=== PATIENT | female | born 1990 | race African-American/Black ===

== ENCOUNTER → 2016-11-29 | Outpatient (CLI) | payer MEDICARE, MEDICAID ==
[~2016-11-29] VITALS: Ht 160 cm; Wt 66.6 kg
[~2016-11-29] MED LIST: CEFU250T87 PO; DOXY100C PO; LEVO500 PO
[2016-11-29 14:06] VITALS: BP 140/95
[2016-11-29 14:10] VITALS: BP 114/59
== END | disposition home or self-care (01) ==
LOC: HBOWC 13:30
PROVIDERS: ATTEND Emergency Medicine
DX: L89.323 Pressure ulcer of left buttock, stage 3 (principal); G82.20 Paraplegia, unspecified; M86.8X7 Other osteomyelitis, ankle and foot
CPT/HCPCS: 72170; 87070; 87077; 87186; 87205; 97597; G0463

== ENCOUNTER → 2016-12-15 | Outpatient (CLI) | payer MEDICARE, MEDICAID ==
[2016-12-15 14:40] VITALS: BP 109/82
== END | disposition home or self-care (01) ==
LOC: HBOWC 14:25
PROVIDERS: ATTEND Emergency Medicine
DX: L89.323 Pressure ulcer of left buttock, stage 3 (principal); G82.20 Paraplegia, unspecified; M86.8X7 Other osteomyelitis, ankle and foot
CPT/HCPCS: 97597

== ENCOUNTER → 2017-01-03 | Outpatient (CLI) | payer MEDICARE, MEDICAID ==
[2017-01-03 14:28] VITALS: BP 140/78
== END | disposition home or self-care (01) ==
LOC: HBOWC 13:40
PROVIDERS: ATTEND Emergency Medicine Undersea and Hyperbaric Medicine
DX: L89.323 Pressure ulcer of left buttock, stage 3 (principal); G82.20 Paraplegia, unspecified; M86.8X7 Other osteomyelitis, ankle and foot; I48.91 Unspecified atrial fibrillation
CPT/HCPCS: 97597

== ENCOUNTER → 2017-01-19 | Outpatient (CLI) | payer MEDICARE, MEDICAID ==
[~2017-01-19] MED LIST changes: -CEFU250T87 PO
[2017-01-19 15:00] VITALS: BP 126/69
== END | disposition home or self-care (01) ==
LOC: HBOWC 14:39
PROVIDERS: ATTEND Emergency Medicine
DX: L89.323 Pressure ulcer of left buttock, stage 3 (principal); G82.20 Paraplegia, unspecified; I48.91 Unspecified atrial fibrillation; M86.8X7 Other osteomyelitis, ankle and foot; B95.61 Methicillin susceptible Staphylococcus aureus infection as the cause of diseases classified elsewhere
CPT/HCPCS: 97597

== ENCOUNTER → 2017-02-02 | Outpatient (CLI) | payer MEDICARE, MEDICAID ==
[~2017-02-02] MED LIST changes: +CEFU250T87 PO
[2017-02-02 14:13] VITALS: BP 110/72
== END | disposition home or self-care (01) ==
LOC: HBOWC 12:43
PROVIDERS: ATTEND Emergency Medicine
DX: L89.323 Pressure ulcer of left buttock, stage 3 (principal); G82.20 Paraplegia, unspecified; I48.91 Unspecified atrial fibrillation; M86.8X7 Other osteomyelitis, ankle and foot
CPT/HCPCS: 87070; 87205; 97597

== ENCOUNTER → 2017-02-21 | Outpatient (CLI) | payer MEDICARE, MEDICAID ==
[~2017-02-21] MED LIST changes: -DOXY100C PO; -LEVO500 PO
[2017-02-21 14:59] VITALS: BP 121/66
== END | disposition home or self-care (01) ==
LOC: HBOWC 14:29
PROVIDERS: ATTEND Emergency Medicine
DX: L89.323 Pressure ulcer of left buttock, stage 3 (principal); I48.91 Unspecified atrial fibrillation; G82.20 Paraplegia, unspecified; M86.8X7 Other osteomyelitis, ankle and foot; Z86.14 Personal history of Methicillin resistant Staphylococcus aureus infection
CPT/HCPCS: 97597; 97598